=== PATIENT | female | born 1980 | race Asian ===

== ENCOUNTER 2017-08-16 16:43 | Emergency (ER) | payer BC, OTHER ==
[2017-08-16 16:51] VITALS: BP 104/59; PULSE 93; RESP 16; TEMP 98.6; O2SAT 94
--- NOTE | 2017-08-16 17:07 | EDPHY ---
H & P Stated Complaint: cough/fever x 1 week - Personal History LMP (Females 10-55): 15-21 Days Ago Current Tetanus/Diphtheria Vaccine: Yes Tetanus Vaccine Date: 02/2015 - Medical/Surgical History Hx Asthma: No Hx Chronic Respiratory Disease: No Hx Diabetes: No Hx Cardiac Disease: No Hx Renal Disease: No Hx Cirrhosis: No Hx Alcoholism: No Hx HIV/AIDS: No Hx Splenectomy or Spleen Trauma: No Other PMH: hysteroscopy, D&C, polypectomy 11/2013. SAB 2013 - Social History Smoking Status: Never smoked Time Seen by Provider: 08/16/17 16:54 HPI/ROS: CHIEF COMPLAINT: URI symptoms x1 week HISTORY OF PRESENT ILLNESS: 28-year-old immunocompetent nonsmoker female complaining of URI symptoms x1 week, not improving. Complaining of intermittently productive cough, sore throat, congestion. No chest pain. No back pain. No abdominal pain. No dyspnea. PHYSICAL EXAM (Prior to examination, patient consented to physical exam, hands were washed and my usual and customary physical exam procedures followed) 1) GENERAL: Well-developed, well-nourished, alert and oriented. Appears to be in no acute distress. Appears nontoxic 2) HEAD: Normocephalic, atraumatic 3) HEENT: Pupils equal, round, reactive to light bilaterally. Sclera anicteric. Nasopharynx: Congestion., oropharynx, clear, no lesions no tonsillar enlargement tonsillar exudate. Ears bilaterally with normal tympanic membranes. 4) NECK: Full range of motion, no meningeal signs. No adenopathy 5) LUNGS: Clear auscultation bilaterally, no wheezes, no rhonchi, no retractions. 6) HEART: Regular rate and rhythm, no murmur, no heave, no gallop. 7) ABDOMEN: No guarding, no rebound, no focal tenderness, negative McBurney's, negative Dennison's, negative Rovsing's, negative peritoneal sign, 8) MUSCULOSKELETAL: Moving all extremities, no focal areas of tenderness, no obvious trauma. No peripheral edema or discoloration. 9) BACK: No CVA tenderness, no midline vertebral tenderness, no fluctuance, no step-off, no obvious trauma, no visual or palpable abnormality. 10) SKIN: No rash, no petechiae. [11) Psychiatric: Patient is oriented X 3, there is no agitation. DIFFERENTIAL DIAGNOSIS: [in no particular include but limited to influenza, pneumonia, bronchitis (Josh Amador) The patient was evaluated and managed by the physician data assistant. I have reviewed this chart and I agree with the findings and plan of care as documented , as indicated by my signature. I am the secondary supervising physician. ( Jacqueline Rankin) Constitutional: Initial Vital Signs Temperature (C) 37 C 08/16/17 16:48 Heart Rate 93 08/16/17 16:48 Respiratory Rate 16 08/16/17 16:48 Blood Pressure 104/59 L 08/16/17 16:48 O2 Sat (%) 94 08/16/17 16:48 O2 Delivery Mode Room Air Allergies/Adverse Reactions: ibuprofen Allergy (Verified 08/16/17 16:47) Home Medications: Medication Instructions Recorded AZITHROMYCIN [Z-PACK] 500 mg PO DAILY #1 packet 08/16/17 Albuterol [Proventil Inhaler HFA 1 - 2 puffs IH Q4PRN PRN #1 mdi 08/16/17 (*)] Benzonatate [Tessalon Pearles (RX)] 200 mg PO TID PRN #15 cap 08/16/17 [place] 08/16/17 Medical Decision Making ED Course/Re-evaluation: I do not identify indication for chest x-ray as the patient's lungs are clear bilaterally, has a normal pulse ox, speaking full sentences, no signs of respiratory distress. Symptoms have been occurring for 7 days. I recommended a course of antibiotics. Will hold on influenza testing as her symptoms have been occurring for 7 days already. The patient understands that this diagnosis is provisional and can never be 100% accurate. Usual and customary warnings were given concerning the clinical impression and all the patient's questions were answered. The patient was instructed to return to the emergency department should her symptoms worsen or return, or develop any new symptoms, otherwise to followup as directed in discharge instructions.Care of patient under supervision of secondary supervising physician Dr Rankin . (Josh Amador) Departure - Departure Disposition: Home, Routine, Self-Care Clinical Impression: Upper respiratory infection Condition: Good Instructions: Upper Respiratory Infection (ED) Additional Instructions: Return to the emergency department immediately for change in breathing habits, change in voice, change in swallowing habits, change in mental status, or any other symptoms that concern you. Referrals: Julianna Childs MD [Medical Doctor] - 3-4 days, if not improved Prescriptions: Albuterol [Proventil Inhaler HFA (*)] 1 - 2 puffs IH Q4PRN PRN #1 mdi PRN Reason: Cough, Moderate AZITHROMYCIN [Z-PACK] 500 mg PO DAILY #1 packet Benzonatate [Tessalon Pearles (RX)] 200 mg PO TID PRN #15 cap PRN Reason: Cough, Moderate
== END 2017-08-16 17:22 | disposition home or self-care (01) ==
DX: J06.9 Acute upper respiratory infection, unspecified (principal)